=== PATIENT | male | born 1940 | race Caucasian/White ===

== ENCOUNTER → 2018-12-04 10:33 | Outpatient (CLI) | payer MEDICARE, OTHER ==
[~2018-12-04 10:33] MED LIST: BAYER CHEWABLE81 MG PO; BUDESONIDE8.43 ML NASAL; COREG12.5 MG PO; COZAAR100 MG PO; GLIMEPIRIDE4 MG PO; GLUCOPHAGE500 MG PO; HYDROCHLOROTHIA25 MG PO; NORVASC5 MG PO; PLAVIX75 MG PO; PROAIR INHALER INH; ZOCOR40 MG PO
--- NOTE | 2018-12-07 15:34 | ST ---
PATIENT:JOHN UMAÑA MEDICAL RECORD: [id number] SEX: M LOCATION:[facility] ORDER #: ADMISSION DATE: 12/04/18 AGE OF PATIENT: 78 REFERRING PHYSICIAN: INTERPRETING PHYSICIAN: ZOLTAN RAMOS MD DATE OF SERVICE: 12/04/2018 PROCEDURE: Nuclear stress test. INDICATION: Angina, shortness of breath, abnormal ECG, hypertension, and hyperlipidemia. The patient was exercised on standard Lexiscan protocol with 33 mCi of sestamibi injected at peak stress, 11 mCi used previously for rest images. FINDINGS: Gated SPECT reveals preserved ejection fraction at 55%; however, there is decreased thickening and brightening throughout the inferior segments. SPECT imaging: Cardiolite was used as myocardial perfusion agent. There is a fixed perfusion defect inferiorly. This includes the basal, mid, apical, inferior segments. There is, however, reversible ischemia anteriorly and apically. This includes the basal, mid, apical, anterior segments as well as the apex itself. The degree of reversibility is mild. The amount of myocardium involved between the defect is large. OVERALL IMPRESSION: This is an abnormal nuclear stress test, large perfusion defect exist inferiorly, anteriorly, and apically suggestive of multivessel coronary artery disease. TRANSINT:[id number] Voice Confirmation ID: [id number] DOCUMENT ID: [id number] ZOLTAN RAMOS MD at 1534 CC: NESTOR PORTILLO [id number] DICTATION DATE: 12/06/182200 PRODUCT/INDUSTRY CONSULTANT: 12/07/18 0116 DEP CLI 12/04/18 [facility] [address] [id number]
[2018-12-11 09:18] VITALS: BMI 28.5
== END | disposition home or self-care (01) ==
LOC: D.HCCARDIO 12-03 10:30
PROVIDERS: ATTEND Internal Medicine Interventional Cardiology
DX: R06.02 Shortness of breath (principal)

== ENCOUNTER 2018-12-11 08:52 | Outpatient (CLI) | payer MEDICARE, OTHER ==
[~2018-12-11] VITALS: Ht 182.9 cm; Wt 95.5 kg
--- NOTE | ~2018-12-11 | HEMODYNAMI ---
PATIENT:JOHN UMAÑA MEDICAL RECORD: [id number] : 40 LOCATION:D.CAT ADMISSION DATE: 12/11/18 Generatedon:12/11/201811:26 Patient name: JOHN UMAÑA Patient #: [id number] SSN: : 1940 Date of study: 12/11/2018 Page: Of Hemodynamic Procedure Report Patient Data Patient Demographics Procedure consent was obtained First Name: JOHN Gender: Male Last Name: LEEROY : 1940 Patient #: [id number] Age: 78 year(s) Race: Unknown Additional ID: [id number] Contact details Address: [address] [address] State: [place] City: [place] Zip code: [address] Past Medical History Allergies: No known allergies Admission Admission Data Admission Date: 12/11/2018 Admission Time: 8:52 Arrival Date: 12/11/2018 Arrival Time: 0:00 Insurance Payor: Medicare Weight (lbs.): 209 Weight (kg.): 94.8 Lab Results Lab Result Date: 12/11/2018 Lab Result Time: 0:00 Biochemistry Name Units Result Min Max BUN mg/dl 16 --(---*)-- 7 18 Creatinine mg/dl 1 --(--*-)-- 0.6 1.3 eGFR ml/min 76.91945 *-(----)-- 90 120 NONAFRICAN CBC Name Units Result Min Max Hematocrit % 39 *-(----)-- 42 54 Hemoglobin g/dl 14.7 --(-*--)-- 13.5 17.5 Procedure Procedure Types Cath Procedure Diagnostic Procedure [facility] w/Coronaries Sedation Charges Moderate Sedation up to 15 minutes PCI Procedure Coronary Stent Coronary Stent Initial Procedure Description Procedure Date Procedure Date: 12/11/2018 Procedure Start Time: 11:01 Procedure End Time: 11:20 Procedure Staff Name Function Rolan Crisostomo MD Performing Physician Vicki Ortez RT Monitor Leia Esparza RN Nurse Kathleen Kidd RT Scrub Procedure Data Cath Procedure Fluoroscopy Diagnostic fluoroscopy Total fluoroscopy Time: 6.2 time: 6.2 min min Diagnostic fluoroscopy Total fluoroscopy dose: 662 dose: 662 mGy mGy Contrast Material Contrast Material Type Amount (ml) Isovue 300 125 Entry Location Entry Primary Successful Side Size Upsize Upsize Entry Closure Succes sful Closure Location (Fr) 1 (Fr) 2 (Fr) Remarks Device Remarks Femoral Right 5 Fr 6 Fr Exoseal artery Short Estimated blood loss: 10 ml Diagnostic catheters Device Type Used For End Catheter Placement MULTIPACK Pigtail 5 Fr Procedure catheter MULTIPACK JL 4.0 5Fr Procedure catheter MULTIPACK 3DRC 5Fr Procedure catheter Procedure Complications No complications Procedure Medications Medication Administration Route Dosage 0.9% NaCl I.V. 100 ml/hr Oxygen etCO2 Nasal cannula 2 l/min Lidocaine 2% added to field 20 Heparin Flush Bag added to field 2 bags (1000units/500ml NS) Versed I.V. 2 mg Fentanyl I.V. 100 mcg Heparin Bolus I.V. 4000 units Integrilin (Bolus I.V. 8.5 ml 2mg/ml) Integrilin (Bolus wasted 1.5 ml 2mg/ml) Plavix P.O. 600 mg Hemodynamics Rest Heart Rate: 66 (bpm) Snapshots Pre Cath Intra NCS Post Cath Vital Signs Time Heart Resp SPO2 etCO2 NIBP (mmHg) Rhythm Pain Sedation Rate (ipm) (%) (mmHg) Status Level (bpm) 10:54:13 63 16 98 38 162/88(144) NSR 0 (11) 10(A) , No pain 10:58:37 66 12 100 30 140/72(112) NSR 0 (11) 10(A) , No pain 11:02:55 61 18 98 34.5 128/64(98) NSR 0 (11) 10(A) , No pain 11:07:13 65 16 98 36.8 129/67(102) NSR 0 (11) 9(A) , No pain 11:11:34 68 14 97 12.7 124/63(93) NSR 0 (11) 9(A) , No pain 11:15:50 65 14 97 21 125/67(100) NSR 0 (11) 10(A) , No pain 11:20:08 66 16 99 31.5 128/68(99) NSR 0 (11) 10(A) , No pain Medications Time Medication Route Dose Verified Delivered Reason Notes Effectiveness by by 10:53:04 0.9% NaCl I.V. 100 Rolan Leia used for ml/hr Andressa Esparza procedures nurse 10:53:12 Oxygen etCO2 2 Rolan Leia used for Nasal l/min Andressa Esparza procedure cannula RN 10:53:17 Lidocaine 2% added 20ml Rolan Rolan for local to vial Andressa Crisostomo MD anesthetic field 10:53:22 Heparin Flush added 2 Rolan Rolan used for Bag to bags Andressa Crisostomo MD procedure (1000units/500ml field NS) 11:02:59 Versed I.V. 2 mg Rolan Leia for sedation Andressa Esparza RN 11:03:05 Fentanyl I.V. 100 Rolan Leia for sedation mcg Andressa Esparza RN 11:09:14 Heparin Bolus I.V. 4000 Rolan Leia for verif ied units Andressa Esparza anticoagulation with Dr. JALEESA Crisostomo 11:09:26 Integrilin I.V. 8.5 Rolan Leia for (Bolus 2mg/ml) ml Andressa Esparza antiplatelet RN therapy 11:09:38 Integrilin wasted 1.5 Rolan Leia for (Bolus 2mg/ml) ml Andressa Esparza antiplatelet RN therapy 11:11:16 Plavix P.O. 600 Rolan Leia for mg Andressa Esparza antiplatelet RN therapy Procedure Log Time Note 10:41:39 Kathleen Kidd RT(R) sent for patient. Start room use. 10:41:41 Procedure Status Elective Heart Cath (OP). 10:41:43 Time tracking: Regular hours (M-F 7:00 - 5:00) 10:41:46 Plan of Care:Hemodynamics will remain stable., Cardiac rhythm will remain stable., Comfort level will be maintained., Respiratory function will remain adequate., Patient/ family verbilizes understanding of procedure., Procedure tolerated without complication., Recovers from procedure without complications.. 10:41:48 Signed procedure consent form obtained from patient. 10:42:01 H&P Date Dictated: 11/27/2018 Within 30 days and on chart., H&P Addendum completed by physician on day of procedure. (MUST COMPLETE FOR ALL OUTPATIENTS). 10:42:07 Patient allergic to No known allergies 10:43:21 Patient Weight : 209 lbs 10:43:32 Arrival Date: 12/11/2018 12:00:00 AM 10:43:38 Insurance Payor : Medicare 10:45:11 Lab Result : BUN 16 mg/dl 10:45:11 Lab Result : Creatinine 1 mg/dl 10:45:11 Lab Result : eGFR NONAFRICAN 76.25232 ml/min 10:45:11 Lab Result : Hemoglobin 14.7 g/dl 10:45:11 Lab Result : Hematocrit 39 % 10:46:31 Patient received from Pre/Post Procedure Room to CCL 1 Alert and oriented. Tansferred to table in Supine position. 10:46:33 Warm blankets applied, and soco hugger turned on for patient comfort. 10:46:33 Correct patient and procedure confirmed by team. 10:46:34 ECG and BP/O2 sat monitors applied to patient. 10:52:56 Vital chart was started 10:53:04 0.9% NaCl 100 ml/hr I.V. was administered by Leia Esparza RN; used for procedure; 10:53:12 Oxygen 2 l/min etCO2 Nasal cannula was administered by Leia Esparza RN; used for procedure; 10:53:17 Lidocaine 2% 20ml vial added to field was administered by Rolan Crisostomo MD; for local anesthetic; 10:53:22 Heparin Flush Bag (1000units/500ml NS) 2 bags added to field was administered by Rolan Crisostomo MD; used for procedure; 10:56:28 Baseline sample Acquired. 10:56:31 Rhythm: sinus rhythm 10:56:32 Full Disclosure recording started 10:56:33 Pre-procedure instructions explained to patient. 10:56:33 Pre-op teaching completed and patient verbalized understanding. 10:56:34 Family in patients room. 10:56:37 Patient NPO since Midnight. 10:56:38 Is patient on blood thinner?No 10:56:40 Is the patient allergic to Iodine/contrast media? No. 10:56:42 Patient diabetic? Yes. 10:56:44 If diabetic: On Metformin? Yes 10:56:47 If on Metformin: Last Dose? 12/10/2018 10:56:49 Previous problem with sedation/anesthesia? No ? 10:56:50 Snore? Yes 10:56:51 Sleep apnea? Yes 10:56:52 Deviated septum? No 10:56:53 Opens mouth fully? Yes 10:56:53 Sticks out tongue? Yes 10:56:55 Airway obstruction? No ? 10:56:57 Dentures? Yes OUT 10:57:00 Pre procedure: right dorsailis pedis pulse 2+ Normal; easily identifiable; not easily obliterated 10:57:05 Patient pain scale 0/10 ?. 10:57:10 IV patent on arrival in left hand with 0.9% NaCl at [facility]. 10:57:13 Lab results completed and on chart. 10:57:15 Right groin area was prepped with chlora-prep and draped in sterile fashion 10:57:15 Alarms reviewed by R. N. 10:57:16 Sharps counted by scrub and verified by R.N. 11:00:22 --------ALL STOP TIME OUT------ 11:00:23 Final Timeout: patient, procedure, and site verified with staff and physician. All members of the team are in agreement. 11:00:26 Right groin site verified by team. 11:00:29 Fire Safety Assessment: A--An alcohol-based skin anteseptic being used preoperatively., C--Open oxygen or nitrous oxide is being used., D--An ESU, laser, or fiber-optic light is being used. 11:00:32 Physical assessment completed. ASA score P 2 - A patient with mild systemic disease as per Rolan Crisostomo MD. 11:00:36 2) 60-89 Mildly reduced kidney function, and other findings (as for stage 1) point to kidney disease. 11:00:41 Maximum allowable contrast dose (3.7 X eGFR X 0.75)214 ml. 11:00:44 Sedation plan: IV Moderate Sedation Medication:Versed, Fentanyl 11:00:52 Procedure started. 11:01:26 Use device set Femoral Dx 11:01:27 ACIST Syringe (89257) opened to sterile field. 11:01:28 Bag Decanter () opened to sterile field. 11:01:29 ACIST Hand Control (75398) opened to sterile field. 11:01:29 ACIST Manifold (59095) opened to sterile field. 11:01:30 Tegaderm 4 x 4 (1626W) opened to sterile field. 11:01:31 Medline Cath Pack ([id number]) opened to sterile field. 11:01:32 DIAGNOSTIC Multipack 5Fr catheter set (IG1532) opened to sterile field. 11:01:33 SHEATH 5FR Gill (MXK935) opened to sterile field. 11:01:33 EMERALD Guide Wire (502-586) opened to sterile field. 11:01:38 Local anesthetic to right femoral artery with Lidocaine 2% by Rolan Crisostomo MD.INITIAL ACCESS ONLY 11:01:52 A 5 Fr sheath was inserted into the Right Femoral artery 11:02:01 Zero performed for pressure channel P1 11:02:31 A MULTIPACK Pigtail 5 Fr catheter was advanced over the wire and used for Procedure. 11:02:51 LV gram done using STAPLES 11:02:54 Injector settings: Ml/sec: 10, Volume: 20, 11:02:59 Versed 2 mg I.V. was administered by Leia Esparza RN; for sedation; 11:03:05 Fentanyl 100 mcg I.V. was administered by Leia Esparza RN; for sedation; 11:03:26 EF : 65 % 11:03:28 Catheter removed. 11:03:37 A MULTIPACK JL 4.0 5Fr catheter was advanced over the wire and used for Procedure. 11:05:18 LCA angiography performed. 11:05:19 Catheter removed. 11:05:23 A MULTIPACK 3DRC 5Fr catheter was advanced over the wire and used for Procedure. 11:06:12 RCA angiography performed. 11:06:13 Catheter removed. 11:06:32 SHEATH 6FR Gill (PWG870) opened to sterile field. 11:06:32 INFLATOR Merit BasixCompak (OO2198) opened to sterile field. 11:06:33 CHOICE PT Extra Support 182cm wire ([id number]) opened to sterile field. 11:06:51 Sheath upsized to a 6 Fr Short. 11:07:01 GUIDE 6FR AR 2.0 SH catheter ([id number]) opened to sterile field. 11:07:06 Pre PCI Site: [place] pRCA has 99% stenosis. 11:08:34 6 Fr AR 2 SH guide catheter was inserted over the wire 11:08:41 CHOICEES 182 wire advanced. 11:09:14 Heparin Bolus 4000 units I.V. was administered by Leia Esparza RN; for anticoagulation; verified with Dr. Crisostomo 11:09:26 Integrilin (Bolus 2mg/ml) 8.5 ml I.V. was administered by Leia Esparza RN; for antiplatelet therapy; 11::38 Integrilin (Bolus 2mg/ml) 1.5 ml wasted was administered by Leia Esparza RN; for antiplatelet therapy; 11:11:16 Plavix 600 mg P.O. was administered by Leia Esparza RN; for antiplatelet therapy; 11:11:56 The KARY RX 4.0 x 12 stent ([id number]) was advanced then removed because of failure to cross lesion 11:12:03 GRAPHIX 182cm guide wire ([id number]) opened to sterile field. 11:12:34 CHOICE ES REMOVED 11:12:52 PT GRAPHIX 182 WIRE ADVANCED 11:14:26 Inflate balloon Inflation number: 1 A EUPHORA 3.5 x 15 Balloon ([id number]) was prepped and advanced across the Prox RCA , then inflated to 15 JERRI for 0:00 (min:sec) . 11:14:42 Balloon removed over the wire. 11:16:02 Place stent Inflation Number: 2 A KARY RX 4.0 x 12 stent ([id number]) was prepped and advanced across the Prox RCA . The stent was deployed at 15 JERRI for 0:00 (min:sec) . 11:16:32 Stent catheter was removed intact over wire. 11:16:32 Wire removed. 11:16:33 Guide catheter removed. 11:16:39 EXOSEAL 6Fr (EX600) opened to sterile field. 11:16:58 Sheath removed intact; hemostasis achieved with Exoseal to the Right Femoral artery. 11:17:11 Procedure ended.(Physican Out) :17:32 Fluoroscopy time 06.20 minutes. 11:17:36 Flurop Dose total: 662 11:17:36 Fluoroscopy dose: 662 mGy 11:17:43 Dose Area Product 94465 mGy/cm. 11:17:46 Contrast amount:Isovue 300 125ml. 11:17:50 Maximum allowable dose exceeded? No. 11:17:51 Sharps counted by scrub and verified by R.N. 11:18:25 Post-op/insertion site Right Femoral artery dressed using a 4 x 4 and Tegaderm. 11:18:27 Post-procedure physical assessment completed. ASA score P 2 - A patient with mild systemic disease as per Rolan Crisostomo MD. 11:18:30 Post procedure rhythm: sinus rhythm 11:18:32 Estimated blood loss: 10 ml 11:18:33 Post procedure instruction explained to patient.Patient verbalizes understanding. 11:18:33 Patient needs reinforcement of post procedure teaching. 11:19:48 Procedure type changed to Cath procedure, Diagnostic procedure, LHC, LHC w/Coronaries, Sedation Charges, Moderate Sedation up to 15 minutes, PCI procedure, Coronary Stent, Coronary Stent Initial 11:20:11 Procedure and supply charges have been captured, reviewed, submitted and are correct. 11:20:13 Procedure Complication : No complications 11:20:15 Vital chart was stopped 11:20:15 See physician's report for complete and final results. 11:20:16 Report given to Pre/Post Procedure Room. 11:20:19 Patient transfered to Pre/Post Procedure Room with Bed. 11:20:26 Procedure ended. 11:20:26 Full Disclosure recording stopped 11:20:30 End room use (Document Last) Intervention Summary Intervention Notes Time ActionType Lesion and Equipment Used Action# Pressure Duration Attributes 11:11:56 Discard KARY RX 4.0 x Stent 12 stent ([id number]) 11:14:26 Inflate Prox RCA EUPHORA 3.5 x 1 15 00:00 balloon 15 Balloon ([id number]) 11:16:02 Place stent Prox RCA KARY RX 4.0 x 2 15 00:00 12 stent ([id number]) Device Usage Item Name Manufacture Quantity Catalog Number Hospital Part Current M inimal Lot# / Charge Number Stock Stock Serial# Code ACIST Syringe Acist 1 27341 061473 686644 884197 2 0 (57653) Medical Systems Inc Bag Decanter Microtek 1 559665 07362 896964 5 () Medical Inc. ACIST Hand Acist 1 03485 173212 569412 619719 5 Control Medical (96079) Systems Inc ACIST Manifold Acist 1 62920 604414 479099 545377 5 (06620) Medical Systems Inc Tegaderm 4 x 4 3M 1 1626W 105331 777259 225863 5 (1626W) Medline Cath Medline 1 [id number] 885220 37771 139338 5 Pack ([id number]) DIAGNOSTIC Cardinal 1 XC1414 992366 37889 249128 3 0 Multipack 5Fr Health catheter set (UP0700) SHEATH 5FR Terumo 1 NLB258 152770 493958 211880 5 Gill (XYK833) EMERALD Guide Cardinal 1 502-455 075249 407256 262782 5 Wire (502-455) Health MULTIPACK Cardinal 1 725196 5 Pigtail 5 Fr Health catheter MULTIPACK JL Cardinal 1 847159 5 4.0 5Fr Health catheter MULTIPACK 3DRC Cardinal 1 411601 5 5Fr catheter Health SHEATH 6FR Terumo 1 AQX416 031081 298645 422139 4 0 Gill (VLS895) INFLATOR Merit Merit 1 OO2977 835267 497878 223141 1 5 Artvalue.com (IQ4352) CHOICE PT [place] 1 [id number] 384591 210205 524024 5 Extra Support Scientific 182cm wire (1384005V7) GUIDE 6FR AR Medtronic 1 [id number] 510102 46426 865175 1 2.0 SH catheter (TE7WB5EX) KARY RX 4.0 x Medtronic 1 [id number] 884186 1206173 530842 5 [id number] 12 stent ([id number]) GRAPHIX 182cm [place] 1 [id number] 018980 435849 245014 5 guide wire Scientific ([id number]) EUPHORA 3.5 x Medtronic 1 [id number] 341176 830662 568797 5 [id number] 15 Balloon ([id number]) EXOSEAL 6Fr Cardinal 1 EX600 888654 467972 956649 1 0 (EX600) Health Signature Audit [place] Stage Time Signature Unsigned Intra-Procedure 12/11/2018 Vicki Ortez 11:26:16 AM RT(R) Signatures Performing Physician : Signature : Rolan Crisostomo MD Date : Time : Monitor : Vicki Ortez Signature : RT Date : Time : Nurse : Leia Isaias RN Signature : Date : Time : [address] [place] [address]
[2018-12-11 09:18] VITALS: BP 180/89; Ht 182.9 cm; Wt 95.5 kg
[2018-12-11] MEDS ORDERED: COZAAR100 MG PO (09:27)
[2018-12-11] MEDS ORDERED: COREG12.5 MG PO (09:27)
[2018-12-11] MEDS ORDERED: GLIMEPIRIDE4 MG PO (09:28)
[2018-12-11] MEDS ORDERED: HYDROCHLOROTHIA25 MG PO (09:28)
[2018-12-11] MEDS ORDERED: GLUCOPHAGE500 MG PO (09:28)
[2018-12-11] MEDS ORDERED: NORVASC5 MG PO (09:28)
[2018-12-11] MEDS ORDERED: ZOCOR40 MG PO (09:30)
[2018-12-11] MEDS ORDERED: BAYER CHEWABLE81 MG PO (09:30)
[2018-12-11] MEDS ORDERED: PROAIR INHALER INH (09:31)
[2018-12-11] MEDS ORDERED: BUDESONIDE8.43 ML NASAL (09:31)
[2018-12-11 09:39] LABS: BASOPHILS 0.5 % (0-2); EOSINOPHILS 9.9 % (0-7); HEMOGLOBIN 14.7 g/dL (13.5-17.5); IMMATURE GRANULOCYTES 0.2 % (0-5); LYMPHOCYTES 32.3 % (15-50); MCHC 37.7 g/dL (31.0-37.0); MCV 90.3 fL (80.0-100.0); MEAN PLATELET VOLUME 8.8 fL (7.4-10.4); MONOCYTES 8.2 % (2-11); NEUTROPHILS 48.9 % (40-80); PLATELET COUNT 153 10x3/uL (130-400); RBC 4.32 10x6/uL (4.20-6.10); WBC 5.8 10x3/uL (4.8-10.8)
[2018-12-11 10:08] LABS: ALT (SGPT) 20 U/L (10-68); CALC OSMOLALITY 275 mosm/kg (275-300); CARBON DIOXIDE 26.4 mmol/L (21.0-32.0); CHLORIDE - SERUM 100 mmol/L (98-107); CHOL - HDL RATIO 3.4 ratio (2.3-4.9); CHOLESTEROL, TOTAL 134 mg/dL (0-200); GLUCOSE 145 mg/dL (74-106); HDL CHOLESTEROL 40 mg/dL (32-96); LDL CHOLESTEROL 62 mg/dL (0-100); LDL-HDL RATIO 1.6 ratio (1.5-3.5); POTASSIUM - SERUM 4.1 mmol/L (3.5-5.1); SODIUM 136 mmol/L (136-145); TRIGLYCERIDE 160 mg/dL (30-200); UREA NITROGEN 16 mg/dL (7-18); eGFR NON AFRICAN AMERICAN 77 mL/min (90-120)
--- NOTE | 2018-12-11 11:33 | NUR ---
PT ARRIVED BY STRETCHER. PLACED ON MONITOR. ASSESSMENT COMPLETED. FAMILY AT BEDSIDE. CALL LIGHT WITHIN REACH.
[2018-12-11] MEDS ORDERED: PLAVIX75 MG PO (11:40)
--- NOTE | 2018-12-11 11:48 | NUR ---
PT RESTING COMFORTABLY. RIGHT GROIN DRESSING C/D/I. NO S/S OF HEMATOMA NOTED. CALL LIGHT WITHIN REACH. FAMILY AT BEDSIDE. VSS.
--- NOTE | 2018-12-11 12:05 | NUR ---
PT GIVEN SANDWICH TRAY AND DRINK. DENIES NAUSEA/PAIN. STILL IN SUPINE POSITION. FAMILY AT BEDSIDE TO ASSIST WITH FEEDING.
--- NOTE | 2018-12-11 12:30 | NUR ---
PT RESTING COMFORTABLY. TOLERATING FOOD AND WATER. VSS. RIGHT GROIN DRESSING C/D/I. NO S/S OF HEMATOMA NOTED. CALL LIGHT WITHIN REACH. FAMILY AT BEDSIDE.
--- NOTE | 2018-12-11 12:53 | NUR ---
DR. RAMOS AT BEDSIDE. SPOKE WITH PT AND PT'S FAMILY. THEY VOICED UNDERSTANDING. RIGHT GROIN DRESSING C/D/I. NO S/S OF HEMATOMA NOTED.
--- NOTE | 2018-12-11 13:27 | NUR ---
PT RESTING COMFORTABLY. VSS. RIGHT GROIN DRESSING C/D/I. NO S/S OF HEMATOMA NOTED. CALL LIGHT WITHIN REACH. FAMILY AT BEDSIDE.
--- NOTE | 2018-12-11 14:19 | NUR ---
PT'S HEAD OF BED INC TO 30 DEGREES. TOLERATED WELL. RIGHT GROIN DRESSING C/D/I. NO S/S OF HEMATOMA NOTED. PT VOIDED IN URINAL WITHOUT DIFFICULTY. VSS. WILL CONTINUE TO MONITOR. FAMILY AT BEDSIDE.
--- NOTE | 2018-12-11 15:10 | NUR ---
DISCUSSED DISCHARGE INSTRUCTIONS WITH PT AND PT'S FAMILY. THEY VOICED UNDERSTANDING. RIGHT GROIN DRESSING C/D/I. NO S/S OF HEMATOMA NOTED. PIV D/C'D WITH CATH TIP INTACT. PT INSTRUCTED TO GET UP AND DRESSED. FAMILY AT BEDSIDE TO ASSIST.
--- NOTE | 2018-12-11 15:30 | NUR ---
PT TAKEN OUT TO VEHICLE BY WHEELCHAIR. NO S/S OF DISTRESS NOTED. ALL BELONGINGS AND PAPERWORK IN HAND.
--- NOTE | 2018-12-18 13:38 | OP ---
PATIENT NAME: JOHN UMAÑA MEDICAL RECORD: [id number] :40 LOCATION:D.CAT ADMISSION DATE: SURGEON: ZOLTAN RAMOS MD DATE OF OPERATION: 12/11/2018 PROCEDURES: 1. PTCA stent RCA. 2. Left heart catheterization. 3. Selective coronary angiography. 4. Left ventriculogram. INDICATION: Unstable angina and coronary artery disease. PROCEDURE IN DETAIL: After informed consent was obtained and after a detailed description of risks, benefits as well as alternative therapies, the patient elected to proceed with angiogram and angioplasty. The right femoral area was prepped and draped in normal sterile fashion. The right femoral artery was cannulated via modified Seldinger technique with placement of 6-Urdu sheath. All catheters exchanged through this sheath. FINDINGS: The left ventriculogram was performed in standard 30-degree STAPLES view, reveals good cardiac wall motion throughout all segments. Overall ejection fraction estimated 60%. SELECTIVE CORONARY ANGIOGRAPHY: 1. Left main has no significant angiographic disease. 2. Left anterior descending has moderate irregularities, but no flow-limiting stenosis. 3. The left circumflex has mild irregularities, but no flow-limiting stenosis. 4. Right coronary artery has an ulcerated 99% stenosis proximally. PTCA STENT OF THE RCA: The stent used was a 4.0 x 12 mm [place]. Result was 0% residual stenosis. OVERALL IMPRESSION: Successful percutaneous transluminal coronary angioplasty stent of the right coronary artery going from 99% initial stenosis to 0% residual. TRANSINT:[id number] Voice Confirmation ID: [id number] DOCUMENT ID: [id number] ZOLTAN RAMOS MD at 1338 CC: [id number] DICTATION DATE: 12/11/18 1230 PROPAGATOR: 12/11/18 1251 DEP CLI 12/11/18 [place] [address]
== END 2018-12-11 15:30 | disposition home or self-care (01) ==
LOC: D.CATH 08:52
PROVIDERS: ATTEND Internal Medicine Interventional Cardiology
DX: I25.110 Atherosclerotic heart disease of native coronary artery with unstable angina pectoris (principal)
CPT/HCPCS: 93458; C9600

== ENCOUNTER → 2019-09-11 13:28 | Outpatient (CLI) | payer MEDICARE, OTHER ==
[2018-12-11 09:18] VITALS: BMI 28.5
== END | disposition home or self-care (01) ==
LOC: D.LABREF 13:28
PROVIDERS: ATTEND Internal Medicine Pulmonary Disease
DX: Z11.59 Encounter for screening for other viral diseases (principal)

== ENCOUNTER → 2019-09-12 10:29 | Outpatient (CLI) | payer MEDICARE, OTHER ==
[2018-12-11 09:18] VITALS: BMI 28.5
[2019-09-12 11:02] LABS: BASOPHILS 0.7 % (0-2); EOSINOPHILS 13.3 % (0-7); HEMATOCRIT 38.5 % (42.0-54.0); HEMOGLOBIN 13.1 g/dL (13.5-17.5); IMMATURE GRANULOCYTES 0.2 % (0-5); LYMPHOCYTES 33.1 % (15-50); MCH 32.7 pg (26.0-34.0); MEAN PLATELET VOLUME 8.6 fL (7.4-10.4); MONOCYTES 7.8 % (2-11); NEUTROPHILS 44.9 % (40-80); PLATELET COUNT 171 10x3/uL (130-400); RBC 4.01 10x6/uL (4.20-6.10); WBC 4.5 10x3/uL (4.8-10.8)
[2019-09-13 08:12] LABS: IMMUNOGLOBULIN A 276 mg/dL (61-437); IMMUNOGLOBULIN G 840 mg/dL (603-1613); IMMUNOGLOBULIN M 85 mg/dL (15-143)
[2019-09-14 06:09] LABS: IGG SUBCLASS 1 463 mg/dL (248-810); IGG SUBCLASS 2 226 mg/dL (130-555); IGG SUBCLASS 3 63 mg/dL (15-102); IGG SUBCLASS 4 39 mg/dL (2-96); IGGS - IGG SERUM 850 mg/dL (603-1613)
[2019-09-15 03:06] LABS: IMMUNOGLOBULIN E 111 IU/mL (6-495)
== END | disposition home or self-care (01) ==
LOC: D.LAB 10:29 → D.RT 11:00 → D.LAB 09-18 13:00 → D.RT 09-18 13:00 → D.LAB 09-23 13:00 → D.RT 10-28 09:00
PROVIDERS: ATTEND Internal Medicine Pulmonary Disease
DX: J45.909 Unspecified asthma, uncomplicated (principal); R91.8 Other nonspecific abnormal finding of lung field; J32.9 Chronic sinusitis, unspecified